=== PATIENT | female | born 1995 | race African-American/Black ===

== ENCOUNTER 2017-12-12 20:57 | Emergency (ER) | payer MEDICAID, OTHER ==
[~2017-12-12 20:57] MED LIST: BACT800T5 PO; IBUP1TAB7 PO
[2017-12-12 21:08] VITALS: BP 123/71; PULSE 87; RESP 16; TEMP 98.7; O2SAT 99
[2017-12-12 21:52] LABS: BASOPHIL % 0.3 % (0.0-2.0); EOSINOPHIL # 0.1 TH/MM3 (0-0.4); EOSINOPHIL % 0.5 % (0.0-4.0); HEMATOCRIT 34.8 % (35.0-46.0); HEMOGLOBIN 11.4 GM/DL (11.6-15.3); LYMPH % 21.4 % (9.0-44.0); LYMPHOCYTE # 2.3 TH/MM3 (1.0-4.8); MEAN CELL VOLUME 80.3 FL (80.0-100.0); MEAN CORPUSCULAR HEMOGLOBIN 26.3 PG (27.0-34.0); MEAN CORPUSCULAR HGB CONC 32.7 % (32.0-36.0); MEAN PLATELET VOLUME 8.7 FL (7.0-11.0); MONOCYTE # 0.5 TH/MM3 (0-0.9); NEUT % 72.8 % (16.0-70.0); PLATELET COUNT 273 TH/MM3 (150-450); RED BLOOD COUNT 4.33 MIL/MM3 (4.00-5.30); RED CELL DISTRIBUTION WIDTH 13.6 % (11.6-17.2); WHITE BLOOD COUNT 10.9 TH/MM3 (4.0-11.0)
[2017-12-12 22:01] LABS: AMORPHOUS SEDIMENT, URINE RARE; BILIRUBIN, URINE NEG (NEG); BLOOD, URINE NEG (NEG); GLUCOSE,URINE NEG (NEG); KETONE, URINE 40 mg/dL (NEG); MUCUS URINE MANY /lpf (OCC); NITRITE,URINE NEG (NEG); PH, URINE 6.5 (5.0-8.5); SQUAMOUS EPITHELIAL CELL URINE 23 /hpf (0-5); URINE COLOR YELLOW (YELLW/STRAW); URINE LEUKOCYTE ESTERASE NEG (NEG)
[2017-12-12 22:18] LABS: ALBUMIN 3.9 GM/DL (3.4-5.0); AST (GOT) 14 U/L (15-37); BICARBONATE 21.5 MEQ/L (21.0-32.0); BLOOD UREA NITROGEN 10 MG/DL (7-18); CALCIUM 9.1 MG/DL (8.5-10.1); CHLORIDE 106 MEQ/L (98-107); CREATININE 0.75 MG/DL (0.50-1.00); GLOMERULAR FILTRATION RATE 117 ML/MIN (>89); GLUCOSE,RANDOM 112 MG/DL (74-106); SODIUM (NA) 137 MEQ/L (136-145)
[2017-12-12 22:19] LABS: ALT (GPT) 16 U/L (10-53)
[2017-12-12 22:23] LABS: ALKALINE PHOSPHATASE 58 U/L (45-117); TOTAL BILIRUBIN ADULT 0.2 MG/DL (0.2-1.0)
[2017-12-13 00:34] VITALS: BP_SYST 109; BP_SYST 110; BP_SYST 115; BP_DIAS 55; BP_DIAS 56; BP_DIAS 63; RESP 18
--- NOTE | 2017-12-13 01:11 | PD ---
HPI Chief Complaint: Related Problem Time Seen by Provider: 00:22 Travel History International Travel<30 days: No Contact w/Intl Traveler<30days: No Traveled to known affect area: No History of Present Illness HPI 22-year-old female 2 para 1 Ab0 presents to the emergency department for complaint of dizziness intermittent lower abdominal discomfort at times for over 10 intensity currently 0/10 in intensity and vomiting. Patient states that she notices her vomiting primarily in the evening, 1 or 2 times. Patient states tonight she vomited 2 times; reportedly had eaten a sub sandwich and eating [place] fried chicken. No report of dietary indiscretion well water ingestion or foreign travel. Patient was encouraged by her employer to come to the emergency room. Patient has an appointment on Sunday 2 days for her establishing with an BACKWINDER for this . Patient's had no vaginal bleeding no vaginal discharge and no fluid leak. Patient currently has no discomfort. Patient denies any chronic medical problems. Patient's had no dysuria frequency urgency hematuria or flank pain. Patient does not report any bilious emesis hematemesis or coffee-ground emesis. Patient's had no change in bowel habits. Patient states just 2 weeks ago did she identify that she was . Patient has not been taking vitamins. PFSH Past Medical History Narrative Medical Negative past medical history negative surgical history LMP 10/17/17; no tobacco use alcohol use; nursing notes reviewed Medical History: Denies Significant Hx Diminished Hearing: No Immunizations Current: Yes Tetanus Vaccination: Unknown Influenza Vaccination: No ?: LMP: 10/17/17 Menopausal: No Para: 1 Past Surgical History Surgical History: No Previous Surgery Section: Yes Social History Alcohol Use: No Tobacco Use: No Substance Use: No Allergies-Medications (Allergen,Severity, Reaction): Coded Allergies: *MDRO Multi-Drug Resistant Organism (Verified Adverse Reaction, Unknown, 10/04/15) 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 Reported Meds & Prescriptions Reported Meds & Active Scripts Active Ibuprofen 800 Mg Tab 800 Mg PO Q6HR PRN Bactrim DS (Sulfamethoxazole-Trimethoprim) 800-160 Mg Tab 1 Tab PO BID Review of Systems Except as stated in HPI: all other systems reviewed are Neg General / Constitutional: No: Fever, Chills HENT: No: Congestion Cardiovascular: No: Chest Pain or Discomfort Respiratory: No: Shortness of Breath Gastrointestinal: Positive: Nausea, Vomiting, Abdominal Pain (lower x 2 weeks, intermittent, none now) Genitourinary: No: Urgency, Frequency, Dysuria, Pelvic Pain, Discharge, Vaginal Bleeding Musculoskeletal: No: Myalgias, Arthralgias Skin: No Rash Neurologic: No: Weakness Psychiatric: No: Anxiety Hematologic/Lymphatic: No: Lymph Node Enlargement Physical Exam Narrative GENERAL: Well-developed well-nourished female no acute distress no respiratory distress SKIN: Warm and dry. HEAD: Normocephalic. EYES: No scleral icterus. No injection or drainage. NECK: Supple, trachea midline. No JVD or lymphadenopathy. CARDIOVASCULAR: Regular rate and rhythm without murmurs, gallops, or rubs. RESPIRATORY: Breath sounds equal bilaterally. No accessory muscle use. GASTROINTESTINAL: Abdomen soft, non-tender, nondistended. Pelvic exam: Normal external exam no redness induration or lesion; speculum exam scant white mucus no blood no clots no tissue cervical loss is closed; bimanual exam no adnexal mass or tenderness no cervical motion tenderness cervical loss is closed. MUSCULOSKELETAL: No cyanosis, or edema. BACK: Nontender without obvious deformity. No CVA tenderness. Data Data Last Documented VS Vital Signs Date Time Temp Pulse Resp B/P (MAP) Pulse Ox O2 Delivery O2 Flow Rate FiO2 12/13/17 00:34 76 18 115/63 (80) 75 18 109/55 (73) 77 110/56 (74) 12/12/17 21:08 98.7 99 Orders Orders Beta Hcg (Quant/Titer) (12/12/17 21:11) Complete Blood Count With Diff (12/12/17 21:11) Comprehensive Metabolic Panel (12/12/17 21:11) Urinalysis - C+S If Indicated (12/12/17 21:11) Orthostatic Vital Signs (12/13/17 00:22) Ed Discharge Order (12/13/17 01:24) Labs Laboratory Tests Test 12/12/17 21:18 12/12/17 21:30 Urine Color YELLOW Urine Turbidity HAZY Urine pH 6.5 Urine Specific [place] 1.035 Urine Protein 30 mg/dL Urine Glucose (UA) NEG mg/dL Urine Ketones 40 mg/dL Urine Occult Blood NEG Urine Nitrite NEG Urine Bilirubin NEG Urine Urobilinogen 2.0 MG/DL Urine Leukocyte Esterase NEG Urine RBC 1 /hpf Urine WBC 3 /hpf Urine Squamous Epithelial Cells 23 /hpf Urine Amorphous Sediment RARE Urine Mucus MANY /lpf Microscopic Urinalysis Comment CULT NOT INDICATED White Blood Count 10.9 TH/MM3 Red Blood Count 4.33 MIL/MM3 Hemoglobin 11.4 GM/DL Hematocrit 34.8 % Mean Corpuscular Volume 80.3 FL Mean Corpuscular Hemoglobin 26.3 PG Mean Corpuscular Hemoglobin Concent 32.7 % Red Cell Distribution Width 13.6 % Platelet Count 273 TH/MM3 Mean Platelet Volume 8.7 FL Neutrophils (%) (Auto) 72.8 % Lymphocytes (%) (Auto) 21.4 % Monocytes (%) (Auto) 5.0 % Eosinophils (%) (Auto) 0.5 % Basophils (%) (Auto) 0.3 % Neutrophils # (Auto) 8.0 TH/MM3 Lymphocytes # (Auto) 2.3 TH/MM3 Monocytes # (Auto) 0.5 TH/MM3 Eosinophils # (Auto) 0.1 TH/MM3 Basophils # (Auto) 0.0 TH/MM3 CBC Comment DIFF FINAL Differential Comment Blood Urea Nitrogen 10 MG/DL Creatinine 0.75 MG/DL Random Glucose 112 MG/DL Total Protein 8.0 GM/DL Albumin 3.9 GM/DL Calcium Level 9.1 MG/DL Alkaline Phosphatase 58 U/L Aspartate Amino Transf (AST/SGOT) 14 U/L Alanine Aminotransferase (ALT/SGPT) 16 U/L Total Bilirubin 0.2 MG/DL Sodium Level 137 MEQ/L Potassium Level 3.1 MEQ/L Chloride Level 106 MEQ/L Carbon Dioxide Level 21.5 MEQ/L Anion Gap 10 MEQ/L Estimat Glomerular Filtration Rate 117 ML/MIN Human Chorionic Gonadotropin, Quant 09028 MIU/ML MDM Medical Decision Making Medical Screen Exam Complete: Yes Emergency Medical Condition: Yes Medical Record Reviewed: Yes Interpretation(s) CBC & BMP Diagram 12/12/17 21:30 Total Protein 8.0, Albumin 3.9, Calcium Level 9.1, Alkaline Phosphatase 58, Aspartate Amino Transf (AST/SGOT) 14 L, Alanine Aminotransferase (ALT/SGPT) 16, Total Bilirubin 0.2 Vital Signs Date Time Temp Pulse Resp B/P (MAP) Pulse Ox O2 Delivery O2 Flow Rate FiO2 12/13/17 00:34 76 18 115/63 (80) 75 18 109/55 (73) 77 110/56 (74) 12/12/17 21:08 98.7 87 16 123/71 (88) 99 Urinalysis: Normal hCG: Positive, 84,334 Differential Diagnosis , ectopic , UTI, round ligament pain, appendicitis, gastroenteritis, threatened miscarriage/spontaneous AB Narrative Course Patient resting comfortably voicing no concerns or complaints is nontender abdomen and pelvic exam reveals no blood no tissue loss is closed no cervical motion tenderness uterine enlargement consistent with Lab values found to be in normal range and test 84,334 consistent with dates of approximately 8 weeks LMP 10/17/17 Bedside ultrasound performed by me after informed verbal consent with transverse and longitudinal views using curvilinear probe single viable intrauterine with heart rate of 168 Patient again voices no concerns or complaints denies any pain at this time is had no nausea or vomiting in the emergency department. At this time patient is stable for outpatient management is encouraged to take vitamins and keep her appointment as scheduled on Sunday. Diagnosis Primary Impression: Qualified Codes: Z3A.01 - Less than 8 weeks gestation of Referrals: [employer] Helper 2 days Keep appointment as scheduled Patient Instructions: General Instructions Departure Forms: Tests/Procedures, Work Release Special Instructions: no work x 1 day Additional Instructions: Follow-up with [facility] Increase fluid hydration Take vitamins Return to the emergency department for concerns or change in condition Barbie Mclean MD Dec 13, 2017 01:11
== END 2017-12-13 01:38 | disposition home or self-care (01) ==
LOC: NEPC 20:57
DX: R11.11 Vomiting without nausea (principal); O26.891 Other specified pregnancy related conditions, first trimester; Z3A.01 Less than 8 weeks gestation of pregnancy
CPT/HCPCS: 80053; 81001; 84702; 85025; 99283